=== PATIENT | female | born 1990 | race Caucasian/White ===

== ENCOUNTER 2017-05-15 12:54 | Emergency (ER) | payer OTHER ==
[2017-05-15 13:48] LABS: HEMOGLOBIN 11.6 g/dL (11.0-16.0); MEAN CELL VOLUME 90.3 fL (81.0-99.0); MEAN CORPUSCULAR HEMOGLOBIN 30.6 pg (27.0-31.0); MEAN CORPUSCULAR HGB CONC 33.9 g/dL (33.0-37.0); MEAN PLATELET VOLUME 7.6 fL (7.2-11.7); RBC 3.78 Mil/uL (3.80-5.20); RED CELL DISTRIBUTION WIDTH 12.6 % (11.5-14.5); WHITE BLOOD COUNT 8.1 K/uL (4.8-10.8)
[2017-05-15 13:51] LABS: SQUAMOUS EPITHIAL 8 /hpf (0-5); URINE BILIRUBIN NEGATIVE (NEGATIVE); URINE BLOOD NEGATIVE (NEGATIVE); URINE CLARITY Hazy (Clear); URINE COLOR Yellow (YELLOW); URINE GLUCOSE (UA) NORMAL (Normal); URINE LEUKOCYTE ESTERASE NEG Leu/uL (Negative); URINE PROTEIN NEGATIVE (NEGATIVE); URINE UROBILINOGEN NORMAL mg/dL (0.2-1.0)
[2017-05-15 13:56] LABS: ALBUMIN 3.7 g/dL (3.5-5.0); ALT/SGPT 11 U/L (9-52); AMYLASE 86 U/L (30-110); AST/SGOT 21 U/L (14-36); BLOOD UREA NITROGEN 9 mg/dL (7-17); CALCIUM 8.6 mg/dl (8.6-10.4); GFR AFRICAN-AMERICAN > 60; GFR NON-AFRICAN AMERICAN > 60; LIPASE 56 U/L (23-300)
[2017-05-15] MEDS ORDERED: Lactated Ringer's 1,000 ML IV SCH (14:00)
[2017-05-15 20:00] VITALS: BP 104/58; PULSE 95; RESP 20; TEMP 97.2
--- NOTE | 2017-05-15 23:26 | OBDCSUM ---
Datetime: 05/15/2017 15:38 Discharged to, Provider: Home Follow up at, Provider: kay Disch Instr Diet: Restricted, specify Discharge Diet restrict Prov: BRAT Diet Discharge Time: 05/15/2017 15:39 Disch Referrals: None Discharge Comment, Provider: precation given imporance of prenal care na smokign cseation perla patijuanan
--- NOTE | 2017-05-15 23:27 | OBHP ---
Datetime: 05/15/2017 13:52 IP Adm Impression: , intrauterine IP Chief Complaint Other: Abdominal pain with nausea/vomiting s/p penicillin usage for dental absces s IP Admit Plan: Discharge home Admit Comment, IP Provider: Patient is a 26 year old female presenting with complaints of naus ea, vomiting, and abdominal pain after taking pencillin which was prescribed by her Dentist due to to oth abscess. Patient has previous history of tooth abscess however this is the first time patient has taken penicillin. Patient states she first took the pill three days ago however symtpoms of nausea, vomiting, and abdominal pain began two days ago. Patient states vomitus consists of food patient cons umed, which occurs few times throughout the day non bloody non bilious but was able to keep her food out pror to arriviat. denies lof, vb, +FM sometiems. Patient dneis any fever, chil, dysur, rgneic, co nspatipon. Admits to cough however denies denies chills, headache, shortness of breath, chest pain, b lon aches. OB hx: , abortions were during second trimester via D_E. 1st and 2nd child were born weighing 6 lbs 7 ounces. 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 Patient continues to have cervical le ngth assessed during visits. Patient is due for a follow up appt and cervical check May 19 PMH: Tooth abscesses Social history: admits to close to 1 ppd, admits to marijuana use, denies alcohol Allergies: Seafood Medications: Currently Penicillin, tylenol, vitamins A/P -UA -CBC, CMP -Amylase, Lipase -LR -UDS -Patient advised on drug and tobacco cessation due to deleterious effects it may have on fetus. Brooks tavera states she is aware. -Patient advised to not abruptly stop antibiotics as this could lead to a more serious infection, which could lead to bacteremia and eventually . Patient advised to follow up with her dentist fo r alternate antibiotic. delayed entry: pt seen and examend with resident pterports nause pe as above labs reviwed s/p ivh, po challenge tolreated dc home f/u clinic nad dndiet whitn 5 days preicaiotn givne Extremities - PN: Normal Abdomen - PN: Normal Lungs - PN: Normal Heart - PN: Normal Neurologic - PN: Normal HEENT - PN: Normal General - PN: Normal FHR - Baseline A Provider: 150 Contraction Comments Provider: none Comments, ACOG Physical Exam: Abdominal: gravid abdomen Gestation - Est Wks by US: 21.5 EGA AdmitDate IP: 21.5 IP Chief Complaint: Other Dilatation, Provider: 0
== END 2017-05-15 15:59 | disposition home or self-care (01) ==
LOC: C.EROB 12:54
DX: O26.892 Other specified pregnancy related conditions, second trimester (principal); R10.9 Unspecified abdominal pain; Z3A.21 21 weeks gestation of pregnancy
CPT/HCPCS: 80053; 81001; 82150; 83690; 85027; 99283; J2405; J7120

== ENCOUNTER 2017-05-26 17:03 | Emergency (ER) | payer OTHER ==
[2017-05-26 17:34] VITALS: BMI 23.8
[2017-05-26 17:51] LABS: SQUAMOUS EPITHIAL 8 /hpf (0-5); URINE BACTERIA OCC (<OCC); URINE BILIRUBIN NEGATIVE (NEGATIVE); URINE BLOOD NEGATIVE (NEGATIVE); URINE CLARITY Hazy (Clear); URINE COLOR Yellow (YELLOW); URINE GLUCOSE (UA) NORMAL (Normal); URINE LEUKOCYTE ESTERASE NEG Leu/uL (Negative); URINE PROTEIN NEGATIVE (NEGATIVE); URINE UROBILINOGEN NORMAL mg/dL (0.2-1.0)
--- NOTE | 2017-05-26 18:13 | OBHP ---
Datetime: 05/26/2017 18:09 IP Adm Impression: , intrauterine IP Chief Complaint Other: vaginal discharge IP Admit Plan: Discharge home Admit Comment, IP Provider: at 23.2weeks came wit c/o yellowish discharge started in am, pt del rio d sex 4 days ago,no pain or vb, obhx 6 x ta, 2 x pmh den med pnv all nkda psh d7c sioch de sse yellowish whitis disc ve closed a/p at 23+weweks vaginitis dc home flagyl no sex po hy f/u in clinic Pelvic Type - PN: Adequate Extremities - PN: Normal Abdomen - PN: Normal Back - PN: Normal Breast - PN: Normal Lungs - PN: Normal Heart - PN: Normal Thyroid - PN: Normal Neurologic - PN: Normal HEENT - PN: Normal General - PN: Normal FHR - Baseline A Provider: 130 Contraction Comments Provider: none EGA AdmitDate IP: 23.2 Vital Signs Provider: Reviewed; Within Normal Limits IP Chief Complaint: Other NICHD Variability Prov Fetus A: Moderate 6-25bpm Dilatation, Provider: 0 Effacement, Provider: 0 Station, Provider: -3 Genitourinary Exam: Normal DTRs - PN: Normal
--- NOTE | 2017-05-26 18:13 | OBDCSUM ---
Datetime: 05/26/2017 18:12 Discharged to, Provider: Home Follow up at, Provider: 2-3days Follow up in weeks, Provider: clinic Discharge Comment, Provider: dc home flagyl no sex po hy f/u in clinic Discharge Diagnosis Prov Other: 23wek vaginitis
[2017-05-26 23:12] VITALS: BP 105/55; PULSE 93; O2SAT 98
== END 2017-05-26 18:26 | disposition home or self-care (01) ==
LOC: C.EROB 17:03
DX: O23.592 Infection of other part of genital tract in pregnancy, second trimester (principal); Z3A.23 23 weeks gestation of pregnancy

== ENCOUNTER 2017-07-26 18:48 | Emergency (ER) | payer OTHER ==
--- NOTE | 2017-07-26 20:52 | OBHP ---
Datetime: 07/26/2017 18:55 IP Adm Impression: , intrauterine IP Chief Complaint Other: Swollen vaginal lips, tingling in her legs IP Admit Plan: Discharge home Admit Comment, IP Provider: 27 y.o. , LMP 12/15/16, JAYSHREE 09/20/17, EGA 32 weeks, c/o vaginal p ressure and swollen labia - noted yesterday while attempting to shave. Initially noticed perineal dis comfort x 1 week. Last had sexual intercourse 3 weeks ago. (+) constipation - "it's hard for me to g o"; maybe once a week. States noticed small amount of blood from rectum 1 day ago. issues: NHCAC - abnormal GCT 149 mg/dL; was to do 3 hr test 07/25 "I wasn't feeling well". (+) AFM; denies LOF , VB, Ctx. P Ob: x 2: both males, both 6lb 7oz, 2012[place] [facility] [place], [facility]; no complications. Spont Ab x , 2011 at 16 wks, no D_C. VTOP x 6: 3 with laminaria/D_E; 3 in first trimester/D_C. 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 Denies h/o STI; (+) HPV; no h/o abnormal pap, myomata. PMH: 2014Janee PSH: D_C x 3, D_E x 3 NKDA Meds: PNV - QD Soc Hx: Current tobacco use, 2-4 cig/day; prior to , 1/2 ppd since age 15. (+) current ma rijuana use - daily; denies EtOH use. Currently in a care home with her 2 boys - "my home has lead in i t". With FOB x 5 years. Unemployed. Fam Hx: Mother alive 50 y.o. - HIV(+); bipolar, schizophrenia. Father - unk [place] (pt does not know much about him) P.E.: as above. WD in obvious discomfort. Awake, alert, oriented to time, person and place. Assessment: 26 y.o [id number], 32 weeks, labial varicosities; constipation and probable internal hemorr hoids. Patient counseled: 1) compressoin stockings; 2) support belt/corset; 3) leg elevatio n, as often as possible; 4) minimize manouvers that cause increased abdominal pressure. Also encourag ed to do 3 hr GTT 07/28/17. Patient expressed an understanidng and agrees. during evlauation snyder e in FHR noted; this was due to patient sittiing. Continued FHR monitoring thereafter - no recurrence with moderate variability ; (+) accels. Patient is clinically stable. Plan: 1) discharge home 2) As above. 3) Reviewed S/S PTL Pelvic Type - PN: Adequate Extremities - PN: Normal Abdomen - PN: Normal Back - PN: Normal Breast - PN: Normal Lungs - PN: Normal Heart - PN: Normal Thyroid - PN: Normal Neurologic - PN: Normal HEENT - PN: Normal General - PN: Normal Presentation-Admit: variable FHR - Baseline A Provider: 135 Contraction Comments Provider: none Comments, ACOG Physical Exam: HEENT: (+) Rosacea on face Abdomen: Gravid. soft. Non tender in all quadrants Perineum: mild labial varicosities. No external hemorrhoid noted Extremities: no varicosities; no calf tenderness All other systems reviewed and are negative Gestation - Est Wks by US: 32.0 EGA AdmitDate IP: 32.0 Vital Signs Provider: Reviewed IP Chief Complaint: Maternal discomfort; Other NICHD Variability Prov Fetus A: Moderate 6-25bpm NICHD Accel Fetus A IP Provider: [id number] FHR Category Provider Fetus A: Category I NICHD Decel Fetus A IP Provider: None Dilatation, Provider: 0 Effacement, Provider: 0 Station, Provider: not applicable Genitourinary Exam: Abnormal DTRs - PN: Normal
[2017-07-26 23:45] VITALS: BP 110/52; PULSE 99
== END 2017-07-26 19:25 | disposition home or self-care (01) ==
LOC: C.EROB 18:48
DX: O22.13 Genital varices in pregnancy, third trimester (principal); O26.893 Other specified pregnancy related conditions, third trimester; K59.00 Constipation, unspecified; Z3A.32 32 weeks gestation of pregnancy

== ENCOUNTER 2017-08-20 22:57 | Inpatient (IN) | payer OTHER ==
[2017-08-20] MEDS ORDERED: Penicillin G 5 Million Unit Vial IVPB ONE (23:45)
[2017-08-20 23:46] VITALS: BMI 26.5
--- NOTE | 2017-08-20 23:54 | OBADHP ---
Datetime: 08/20/2017 23:49 Admit Comment, IP Provider: at 35+weeeks came with c/o lof started at 3 pm on/off, no kellogg or vb +fm obhx 2 x , 6 ta pmh den all nkda psh d_c soch smoking week seee +pooling, +nitrazne ve closd bss cep a/p at 35+eweeks prom admit to l_d npo/ivf labs kellogg manag cont angela and efm antbiotics cytotc aticiapate Pelvic Type - PN: Adequate Extremities - PN: Normal Abdomen - PN: Normal Back - PN: Normal Breast - PN: Normal Lungs - PN: Normal Heart - PN: Normal Thyroid - PN: Normal Neurologic - PN: Normal HEENT - PN: Normal General - PN: Normal FHR - Baseline A Provider: 130 Amniotic Fluid Color, Provider: Clear Membranes, Provider: Ruptured IP Hx Assessment: The History has been Reviewed and is Current Vital Signs Provider: Reviewed; Within Normal Limits IP Chief Complaint: Suspected ruptured membranes NICHD Variability Prov Fetus A: Moderate 6-25bpm NICHD Accel Fetus A IP Provider: 15X15 FHR Category Provider Fetus A: Category I Dilatation, Provider: 0 Effacement, Provider: 0 Station, Provider: -3 Genitourinary Exam: Normal DTRs - PN: Normal EGA AdmitDate IP: 35.4 IP Adm Impression: , intrauterine IP Admit Plan: Admit to unit; Initiate labor protocol Datetime: 07/26/2017 18:55 IP Chief Complaint Other: Swollen vaginal lips, tingling in her legs Presentation-Admit: variable Contraction Comments Provider: none Comments, ACOG Physical Exam: HEENT: (+) Rosacea on face Abdomen: Gravid. soft. Non tender in all quadrants Perineum: mild labial varicosities. No external hemorrhoid noted Extremities: no varicosities; no calf tenderness All other systems reviewed and are negative Gestation - Est Wks by US: 32.0 NICHD Decel Fetus A IP Provider: None
[2017-08-21] MEDS ORDERED: Lactated Ringer's 1,000 ML IV SCH (00:15)
[2017-08-21] MEDS ORDERED: Betamethasone Soluspan 30 mg/5mL Inj Susp IM SCH (00:15)
[2017-08-21] MEDS ORDERED: Penicillin G 5 Million Unit Vial IVPB ONE (01:04)
[2017-08-21 01:52] LABS: BASO % 0.3 % (0.0-2.0); EOS # 0.1 K/uL (0.0-0.7); EOS % 0.9 % (0.0-4.0); HEMOGLOBIN 9.3 g/dL (11.0-16.0); LYMPH # 2.3 K/uL (1.0-4.3); LYMPH % 21.3 % (20.0-40.0); MEAN CELL VOLUME 88.3 fL (81.0-99.0); MEAN CORPUSCULAR HGB CONC 35.1 g/dL (33.0-37.0); MEAN PLATELET VOLUME 8.4 fL (7.2-11.7); MONO # 0.9 K/uL (0.0-0.8); MONO % 8.5 % (0.0-10.0); NEUT # 7.6 K/uL (1.8-7.0); NRBC % 0.1 % (0.0-2.0); RBC 3.01 Mil/uL (3.80-5.20); RED CELL DISTRIBUTION WIDTH 13.1 % (11.5-14.5)
[2017-08-21 01:56] LABS: SQUAMOUS EPITHIAL 1 /hpf (0-5); URINE BILIRUBIN NEGATIVE (NEGATIVE); URINE BLOOD NEGATIVE (NEGATIVE); URINE CLARITY Hazy (Clear); URINE COLOR Yellow (YELLOW); URINE GLUCOSE (UA) NORMAL (Normal); URINE LEUKOCYTE ESTERASE TRACE Leu/uL (Negative); URINE PROTEIN NEGATIVE (NEGATIVE); URINE UROBILINOGEN NORMAL mg/dL (0.2-1.0)
[2017-08-21 02:05] LABS: ALB/GLOB RATIO 1.1 (1.0-2.1); ALBUMIN 3.2 g/dL (3.5-5.0); ALT/SGPT 10 U/L (9-52); AST/SGOT 17 U/L (14-36); BLOOD UREA NITROGEN 10 mg/dL (7-17); CALCIUM 8.9 mg/dl (8.6-10.4); GFR AFRICAN-AMERICAN > 60; GFR NON-AFRICAN AMERICAN > 60
[2017-08-21 02:14] LABS: BARBITURATES, UR NEGATIVE (NEGATIVE); BENZODIAZEPINES, UR NEGATIVE (NEGATIVE); OPIATES, UR NEGATIVE (NEGATIVE); PHENCYCLIDINE, UR NEGATIVE (NEGATIVE)
[2017-08-21 02:45] LABS: HEPATITIS B SURFACE AG Negative (NEGATIVE)
[2017-08-21] MEDS ORDERED: Oxycodone/Acetaminophen 5/325 mg Tab PO PRN (04:28)
[2017-08-21] MEDS ORDERED: Benzocaine/Menthol 20%-0.5% Topical Spray (60 ml) TOP PRN (04:28)
--- NOTE | 2017-08-21 04:30 | OBDS ---
MATERNAL INFORMATION Provider Comments: baby ddliverd in [place] end [place] 9/9 no com LABOR SUMMARY EDC: 09/20/2017 00:00 LABOR INFORMATION Cervical Ripening Agents: Cytotec @ 50mcg po MEMBRANES Membranes Rupture Method: Spontaneous Rupture of Membranes: 08/20/2017 15:00 Amniotic Fluid Color: Clear IDENTIFICATION/MEDS BABY A ID Band Number: [id number] Sensor Number: [id number]
[2017-08-21] MEDS: Oxycodone/Acetaminophen 5/325 mg Tab PO PRN (10:45)
[2017-08-22 08:39] LABS: BASO % 0.2 % (0.0-2.0); HEMOGLOBIN 10.7 g/dL (11.0-16.0); LYMPH # 1.9 K/uL (1.0-4.3); LYMPH % 12.4 % (20.0-40.0); MEAN CELL VOLUME 88.2 fL (81.0-99.0); MEAN CORPUSCULAR HEMOGLOBIN 31.1 pg (27.0-31.0); MEAN CORPUSCULAR HGB CONC 35.3 g/dL (33.0-37.0); MEAN PLATELET VOLUME 8.1 fL (7.2-11.7); MONO % 6.4 % (0.0-10.0); NEUT # 12.5 K/uL (1.8-7.0); RBC 3.45 Mil/uL (3.80-5.20); RED CELL DISTRIBUTION WIDTH 13.4 % (11.5-14.5); WHITE BLOOD COUNT 15.5 K/uL (4.8-10.8)
[2017-08-22] MEDS: Oxycodone/Acetaminophen 5/325 mg Tab PO PRN (19:50)
[2017-08-23 00:27] VITALS: RESP 20
[2017-08-23 07:36] VITALS: BP 122/72; PULSE 84; TEMP 97; O2SAT 100
--- NOTE | 2017-08-23 08:39 | OBPPN ---
Datetime: 08/23/2017 08:34 PP Pain Prov: Within normal limits PP Nausea Prov: Denies PP Flatus Prov: Yes PP Breasts Prov: Normal PP Lungs Prov: Normal PP Abdomen/Uterus Prov: Normal PP Lochia Prov: Normal PP Extremities Prov: Normal PP Impression Prov: Normal progression PP Plan Prov: Continue present management; Discharge PP Progress Note Prov: A/P; S/P SV doing well Breast feeding PP instructions discussed F?U in the clinic in 6 wks or earlier if needed. IP PP Procedures: None Datetime: 08/22/2017 09:06 PP Heart Prov: Normal PP Vulva/Perineum Prov: Normal PP CVA Tenderness Prov: Normal
== END 2017-08-23 13:40 | disposition home or self-care (01) | DRG 372 ==
LOC: C.EROB 22:57 → C.4D 23:46 → C.4M 08-21 06:50
PROVIDERS: ADMIT Obstetrics & Gynecology; ATTEND Obstetrics & Gynecology
PROC: 10E0XZZ Delivery of Products of Conception, External Approach (ICD-10-PCS; principal; 2017-08-20)
DX: O60.14X0 Preterm labor third trimester with preterm delivery third trimester, not applicable or unspecified (principal); O42.913 Preterm premature rupture of membranes, unspecified as to length of time between rupture and onset of labor, third trimester; Z37.0 Single live birth; Z3A.35 35 weeks gestation of pregnancy; O99.72 Diseases of the skin and subcutaneous tissue complicating childbirth; L71.9 Rosacea, unspecified